=== PATIENT | female | born 1970 | race Caucasian/White ===

== ENCOUNTER 2021-04-09 12:25 | Emergency (ER) | payer BC ==
[2021-04-09 12:34] VITALS: TEMP 98
[2021-04-09] MEDS ORDERED: MORPHINE SULFATE 4 MG/ML SYRINGE IV STA (12:40)
--- NOTE | 2021-04-09 12:50 | ED ---
General Adult HPI - General Chief complaint: Recheck/Abnormal Lab/Rx Stated complaint: L kneck and arm pain Time Seen by Provider: 04/09/21 12:34 Source: patient, RN notes reviewed, old records reviewed Mode of arrival: wheelchair Limitations: no limitations - History of Present Illness Initial comments: 50-year-old female presenting for left neck pain pain began this morning. No injury or trauma. History is obtained both from the patient and her who is at bedside. She has a previous history of traumatic brain injury and has some speech difficulties but is able to answer questions. She denies chest pain or dyspnea. No fever. No abdominal pain. No vomiting. Pain is localized to the left neck and upper shoulder worse with movement. There was concern that this could be related to chest pain equivalent and this is the reason they have presents to the emergency department. She did take Motrin with some relief at home. - Related Data Allergies Allergy/AdvReac Type Severity Reaction Status Date / Time No Known Allergies Allergy Verified 04/09/21 12:28 Review of Systems ROS Statement: Those systems with pertinent positive or pertinent negative responses have been documented in the HPI. ROS Other: All systems not noted in ROS Statement are negative. Past Medical History Past Medical History: COPD, Diabetes Mellitus, Hyperlipidemia, Seizure Disorder Additional Past Medical History / Comment(s): TBI History of Any Multi-Drug Resistant Organisms: None Reported Past Surgical History: No Surgical Hx Reported Past Psychological History: Bipolar, Depression Smoking Status: Current every day smoker Past Alcohol Use History: None Reported Past Drug Use History: None Reported General Exam Limitations: no limitations General appearance: alert, in no apparent distress Head exam: Present: atraumatic, normocephalic Eye exam: Present: normal appearance, PERRL ENT exam: Present: normal exam Neck exam: Present: normal inspection, tenderness (Valerio has paraspinal tenderness left cervical region into the trapezius worse with rotation of the shoulder. No gross deformity of the shoulder. No midline tenderness.) Respiratory exam: Present: normal lung sounds bilaterally. Absent: respiratory distress, wheezes Cardiovascular Exam: Present: regular rate, normal rhythm GI/Abdominal exam: Present: soft. Absent: distended, tenderness, guarding Extremities exam: Present: normal inspection, full ROM, tenderness (Left shoulder, pain with range of motion in the trapezius.), normal capillary refill Neurological exam: Present: alert, oriented X3, CN II-XII intact. Absent: motor sensory deficit Psychiatric exam: Present: normal affect, normal mood Skin exam: Present: warm, dry, intact. Absent: cyanosis, diaphoretic Course Vital Signs 04/09/21 04/09/21 12:29 13:53 Temperature 98.0 F Pulse Rate 93 80 Respiratory 16 18 Rate Blood Pressure 115/76 129/83 O2 Sat by Pulse 100 98 Oximetry EKG Findings - EKG Comments: EKG Findings:: Normal sinus rhythm, rate of 95, PA interval 160, QRS duration 86, QTC 452, no ST segment elevation. Medical Decision Making - Medical Decision Making 50-year-old female with left-sided neck and shoulder pain. Pain is muscular in nature. No associated trauma. There was concern for cardiac cause of this pain. Pulse exam is within normal limits. She has no central chest pain. EKG is sinus rhythm without ST segment elevation. Chest x-rays negative for acute cardio pulmonary disease. She has a normal CBC, CMP does show some hypo magnesemia and elevated blood glucose. Otherwise unremarkable. Troponin is negative. Symptoms have been present throughout the day today. Patient reassured and feeling better. She will continue taking Motrin at home for symptom control. - Lab Data Result diagrams: 04/09/21 13:02 04/09/21 13:02 Lab Results 04/09/21 04/09/21 04/09/21 Range/Units 13:02 13:02 13:02 WBC 6.6 (3.8-10.6) k/uL RBC 4.22 (3.80-5.40) m/uL Hgb 13.7 (11.4-16.0) gm/dL Hct 40.2 (34.0-46.0) % MCV 95.3 (80.0-100.0) fL MCH 32.4 (25.0-35.0) pg MCHC 34.0 (31.0-37.0) g/dL RDW 12.1 (11.5-15.5) % Plt Count 195 (150-450) k/uL MPV 7.0 Neutrophils % 64 % Lymphocytes % 26 % Monocytes % 5 % Eosinophils % 3 % Basophils % 1 % Neutrophils # 4.2 (1.3-7.7) k/uL Lymphocytes # 1.7 (1.0-4.8) k/uL Monocytes # 0.3 (0-1.0) k/uL Eosinophils # 0.2 (0-0.7) k/uL Basophils # 0.0 (0-0.2) k/uL PT 10.8 (9.0-12.0) sec INR 1.0 (<1.2) APTT 22.5 (22.0-30.0) sec Sodium 138 (137-145) mmol/L Potassium 4.3 (3.5-5.1) mmol/L Chloride 105 (98-107) mmol/L Carbon Dioxide 25 (22-30) mmol/L Anion Gap 8 mmol/L BUN 9 (7-17) mg/dL Creatinine 0.48 L (0.52-1.04) mg/dL Est GFR (CKD-EPI)AfAm >90 (>60 ml/min/1.73 sqM) Est GFR (CKD-EPI)NonAf >90 (>60 ml/min/1.73 sqM) Glucose 235 H (74-99) mg/dL Calcium 9.4 (8.4-10.2) mg/dL Magnesium 1.3 L (1.6-2.3) mg/dL Total Bilirubin <0.1 L (0.2-1.3) mg/dL AST 25 (14-36) U/L ALT 22 (4-34) U/L Alkaline Phosphatase 138 H (38-126) U/L Troponin I (0.000-0.034) ng/mL Total Protein 6.3 (6.3-8.2) g/dL Albumin 4.0 (3.5-5.0) g/dL 04/09/21 Range/Units 13:02 WBC (3.8-10.6) k/uL RBC (3.80-5.40) m/uL Hgb (11.4-16.0) gm/dL Hct (34.0-46.0) % MCV (80.0-100.0) fL MCH (25.0-35.0) pg MCHC (31.0-37.0) g/dL RDW (11.5-15.5) % Plt Count (150-450) k/uL MPV Neutrophils % % Lymphocytes % % Monocytes % % Eosinophils % % Basophils % % Neutrophils # (1.3-7.7) k/uL Lymphocytes # (1.0-4.8) k/uL Monocytes # (0-1.0) k/uL Eosinophils # (0-0.7) k/uL Basophils # (0-0.2) k/uL PT (9.0-12.0) sec INR (<1.2) APTT (22.0-30.0) sec Sodium (137-145) mmol/L Potassium (3.5-5.1) mmol/L Chloride (98-107) mmol/L Carbon Dioxide (22-30) mmol/L Anion Gap mmol/L BUN (7-17) mg/dL Creatinine (0.52-1.04) mg/dL Est GFR (CKD-EPI)AfAm (>60 ml/min/1.73 sqM) Est GFR (CKD-EPI)NonAf (>60 ml/min/1.73 sqM) Glucose (74-99) mg/dL Calcium (8.4-10.2) mg/dL Magnesium (1.6-2.3) mg/dL Total Bilirubin (0.2-1.3) mg/dL AST (14-36) U/L ALT (4-34) U/L Alkaline Phosphatase (38-126) U/L Troponin I <0.012 (0.000-0.034) ng/mL Total Protein (6.3-8.2) g/dL Albumin (3.5-5.0) g/dL Disposition Clinical Impression: Trapezius muscle spasm Disposition: HOME SELF-CARE Condition: Good Instructions (If sedation given, give patient instructions): Cervical Strain (ED) Additional Instructions: Please follow up with her primary care physician. Is patient prescribed a controlled substance at d/c from ED?: No Referrals: Nonstaff,Physician [Primary Care Provider] - 1-2 days Time of Disposition: 14:03
[2021-04-09 13:14] LABS: Basophils % (A) 1 %; Eosinophils # (A) 0.2 k/uL (0-0.7); Eosinophils % (A) 3 %; HCT 40.2 % (34.0-46.0); HGB 13.7 gm/dL (11.4-16.0); Lymphocytes # (A) 1.7 k/uL (1.0-4.8); Lymphocytes % (A) 26 %; MCH 32.4 pg (25.0-35.0); MCV 95.3 fL (80.0-100.0); Monocytes # (A) 0.3 k/uL (0-1.0); Monocytes % (A) 5 %; Neutrophils # (A) 4.2 k/uL (1.3-7.7); Neutrophils % (A) 64 %; Platelet Count 195 k/uL (150-450); RBC 4.22 m/uL (3.80-5.40); RDW 12.1 % (11.5-15.5); WBC 6.6 k/uL (3.8-10.6)
[2021-04-09 13:24] LABS: ALT 22 U/L (4-34); AST 25 U/L (14-36); African American GFR (CKD) >90 (>60 ml/min/1.73 sqM); Alkaline Phosphatase 138 U/L (38-126); Anion Gap 8 mmol/L; Blood Urea Nitrogen 9 mg/dL (7-17); Calcium 9.4 mg/dL (8.4-10.2); Carbon Dioxide 25 mmol/L (22-30); Chloride 105 mmol/L (98-107); Glucose 235 mg/dL (74-99); Magnesium 1.3 mg/dL (1.6-2.3); Non-African American GFR(CKD) >90 (>60 ml/min/1.73 sqM); Potassium 4.3 mmol/L (3.5-5.1); Sodium 138 mmol/L (137-145); Total Bilirubin <0.1 mg/dL (0.2-1.3); Total Protein 6.3 g/dL (6.3-8.2)
--- NOTE | 2021-04-09 13:27 | XR ---
EXAMINATION TYPE: XR chest 2V DATE OF EXAM: 04/09/2021 COMPARISON: NONE HISTORY: Chest pain TECHNIQUE: Frontal and lateral views of the chest are obtained. FINDINGS: There is no focal air space opacity, pleural effusion, or pneumothorax seen. The cardiac silhouette size is within normal limits. The osseous structures are intact. IMPRESSION: No acute cardiopulmonary process.
[2021-04-09] MEDS ORDERED: MAGNESIUM SULFATE-D5W PMX 1 GM in DEXTROSE/WATER 1 100ML.BAG IVPB ONE (13:30)
[2021-04-09 13:35] LABS: Partial Thromboplastin Time 22.5 sec (22.0-30.0); Prothrombin Time 10.8 sec (9.0-12.0)
[2021-04-09 13:54] VITALS: PULSE 80; RESP 18
[2021-04-09 15:05] VITALS: BP 121/89
== END 2021-04-09 15:08 | disposition home or self-care (01) ==
LOC: EC 12:25
DX: M62.830 Muscle spasm of back (principal); E11.9 Type 2 diabetes mellitus without complications; E78.5 Hyperlipidemia, unspecified; G40.909 Epilepsy, unspecified, not intractable, without status epilepticus; J44.9 Chronic obstructive pulmonary disease, unspecified; F31.9 Bipolar disorder, unspecified; F17.200 Nicotine dependence, unspecified, uncomplicated; Z87.820 Personal history of traumatic brain injury
CPT/HCPCS: 36415; 93005; 80053; 83735; 84484; 85025; 85610; 85730; 71046; 99284; 96365; 96375; J2270; J3475

== ENCOUNTER 2021-11-30 10:29 | Emergency (ER) | payer BC ==
[2021-11-30] MEDS ORDERED: KETOROLAC 15 MG/ML 1 ML VIAL IM STA (11:19)
--- NOTE | 2021-11-30 11:40 | ED ---
Fall HPI - General Chief Complaint: Fall Stated Complaint: Fall Time Seen by Provider: 11/30/21 11:11 Source: patient Mode of arrival: ambulatory - History of Present Illness Initial Comments: Patient is a 51-year-old female who presents to the emergency department chief complaining of left knee pain due to fall. Patient slipped on snow yesterday and fell forward onto her left knee. No head trauma. No loss of consciousness. No blood thinner use. Patient currently reports left knee and left thigh pain anteriorly. Patient states that she has no limitation with knee movement. She denies numbness and tingling distal to the left thigh/knee She denies fever, chills, shortness of breath, chest pain, abdominal pain, nausea, vomiting, and dysuria. - Related Data Allergies Allergy/AdvReac Type Severity Reaction Status Date / Time divalproex sodium Allergy Unknown Verified 11/30/21 10:56 [From Depakote] lithium Allergy Unknown Verified 11/30/21 10:56 Review of Systems ROS Statement: Those systems with pertinent positive or pertinent negative responses have been documented in the HPI. ROS Other: All systems not noted in ROS Statement are negative. Past Medical History Past Medical History: COPD, Diabetes Mellitus, Hyperlipidemia, Seizure Disorder Additional Past Medical History / Comment(s): TBI History of Any Multi-Drug Resistant Organisms: None Reported Past Surgical History: Orthopedic Surgery Additional Past Surgical History / Comment(s): knee surgery left Past Psychological History: Bipolar, Depression Smoking Status: Current every day smoker Past Alcohol Use History: None Reported Past Drug Use History: None Reported General Exam Limitations: no limitations General appearance: alert, in no apparent distress Head exam: Present: atraumatic, normocephalic, normal inspection Eye exam: Present: normal appearance, PERRL, EOMI. Absent: scleral icterus, conjunctival injection, periorbital swelling Neck exam: Present: normal inspection, full ROM. Absent: tenderness Respiratory exam: Present: normal lung sounds bilaterally. Absent: respiratory distress, wheezes, rales, rhonchi, stridor Cardiovascular Exam: Present: regular rate, normal rhythm, normal heart sounds. Absent: systolic murmur, diastolic murmur, rubs, gallop, clicks GI/Abdominal exam: Present: soft. Absent: distended, tenderness, guarding, rebound, rigid Left Hip exam: Present: normal inspection, full ROM. Absent: tenderness, swelling, deformity, erythema Upper Leg exam: Present: normal inspection, full ROM. Absent: tenderness, swelling Knee exam: Present: normal inspection, full ROM, tenderness (anteriorly), swelling (suprapatellar ). Absent: ecchymosis, dislocation, erythema Lower Leg exam: Present: normal inspection, full ROM. Absent: tenderness, swelling, deformity Course Vital Signs 11/30/21 11/30/21 10:53 12:06 Temperature 98.4 F Pulse Rate 107 H 91 Respiratory 16 18 Rate Blood Pressure 124/76 113/83 O2 Sat by Pulse 99 97 Oximetry Medical Decision Making - Medical Decision Making Patient is a 51-year-old female who presents with left knee pain due to fall yesterday. Thorough history and examination were performed. Left femur x-ray reveals no acute fracture with arthropathy that can be correlated for femoral acetabular impingement. Left knee x-ray reveals no acute fracture or dislocation with a large suprapatellar bursal fluid collection. Patient given Toradol for pain. On reevaluation patient is resting in bed. Case discussed with patient. She will be discharged with orthopedic technician referral for further evaluation and management of her knee pain. Patient verbalizes understanding and is agreeable to plan. Return parameters discussed. Dr. Dick is my attending. Disposition Clinical Impression: Left knee pain Disposition: HOME SELF-CARE Condition: Good Instructions (If sedation given, give patient instructions): Fall Prevention for Older Adults (ED) Additional Instructions: Use crutches as directed. Keep knee immobilizer on during all physical activity. You may take the knee immobilizer off when resting the left knee. Ice the left knee for 20 minutes 4 times a day. Take Tylenol or Motrin as needed for pain. Follow-up with orthopedic technician at earliest available appointment. Return to the emergency department if he experienced new, concerning, or worsening symptoms. Is patient prescribed a controlled substance at d/c from ED?: No Referrals: Nonstaff,Physician [REFERRING] - 1-2 days Olga Freire DO [Doctor of Osteopathic Medicine] - 1-2 days Time of Disposition: 12:55
[2021-11-30 12:10] VITALS: RESP 18
--- NOTE | 2021-11-30 12:31 | XR ---
EXAMINATION TYPE: XR femur LT DATE OF EXAM: 11/30/2021 CLINICAL HISTORY: Pain TECHNIQUE: Two views of the left femur are obtained. COMPARISON: None FINDINGS: There is no acute fracture or dislocation seen in the left femur. Concentric narrowing of the hip joint with hypertrophic change of the acetabulum. IMPRESSION: 1. Arthropathy correlate for femoral acetabular impingement. 2. No acute fractures.
--- NOTE | 2021-11-30 12:32 | XR ---
EXAMINATION TYPE: XR knee complete LT DATE OF EXAM: 11/30/2021 COMPARISON: NONE HISTORY: Pain TECHNIQUE: Three views are submitted. FINDINGS: Narrowing medial compartment knee joint and patellofemoral joint with large suprapatellar bursal flui d collection. Chronic fractures involving the tibia fibula soft tissue calcifications.. Osseous stru ctures are intact. No acute fracture seen. IMPRESSION: 1. No acute fracture or dislocation. However, there is a large suprapatellar bursal fluid collection correlate with MRI as clinically warranted. 2. Chronic fractures of the tibia and fibula.
[2021-11-30 13:57] VITALS: BP 121/93; PULSE 96; TEMP 97.9
== END 2021-11-30 13:58 | disposition home or self-care (01) ==
LOC: EC 10:29
DX: M25.562 Pain in left knee (principal); J44.9 Chronic obstructive pulmonary disease, unspecified; E11.9 Type 2 diabetes mellitus without complications; E78.5 Hyperlipidemia, unspecified; F31.9 Bipolar disorder, unspecified; F17.200 Nicotine dependence, unspecified, uncomplicated
CPT/HCPCS: 99283; 96372; 73552; 73562; L1830; J1885

== ENCOUNTER 2023-11-08 09:59 | Emergency (ER) | payer BC ==
[2023-11-08 10:27] VITALS: TEMP 97.3
--- NOTE | 2023-11-08 11:02 | ED ---
General Adult HPI - General Chief complaint: Altered Mental Status Stated complaint: Unresponsive Time Seen by Provider: 11/08/23 10:14 Source: EMS Mode of arrival: EMS Limitations: altered mental status - History of Present Illness Initial comments: Dictation was produced using [employer] dictation software. please excuse any grammatical, word or spelling errors. Chief Complaint: 53-year-old female past medical history of traumatic brain injury, seizure presents to the ER after syncopal episode History of Present Illness: Patient is a 53-year-old female with past medical history of TBI and seizures presents to the emergency department after syncopal episode. Patient was brought in from home by EMS. Patient had a syncopal event after having a cigarette outside. Family member was with her when the event happened. There is no reported tonic-clonic activity. Family member was concerned that patient was having cardiac event started performing CPR. They noticed that she was breathing and decided to stop doing CPR. 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 Family are at the bedside states that patient appears to be a little slow., Slower more than usual The ROS documented in this emergency department record has been reviewed and confirmed by me. Those systems with pertinent positive or negative responses have been documented in the HPI. All other systems are other negative and/or noncontributory. - Related Data Home Medications Medication Instructions Recorded Confirmed Cholecalciferol [Vitamin D3 (25 50 mcg PO DAILY 11/08/23 11/08/23 Mcg = 1000 Iu)] Nateglinide [Starlix] 60 mg PO TID 11/08/23 11/08/23 OXcarbazepine [Trileptal] 300 mg PO BID 11/08/23 11/08/23 Simvastatin [Zocor] 40 mg PO HS 11/08/23 11/08/23 Trihexyphenidyl [Artane] 2 mg PO BID 11/08/23 11/08/23 cloZAPine [Clozaril] 600 mg PO DAILY 11/08/23 11/08/23 metFORMIN HCL [Glucophage] 1,000 mg PO BID 11/08/23 11/08/23 sitaGLIPtin [Januvia] 100 mg PO DAILY 11/08/23 11/08/23 Allergies Allergy/AdvReac Type Severity Reaction Status Date / Time divalproex sodium Allergy Unknown Verified 11/08/23 12:18 [From Depakote] lithium Allergy Unknown Verified 11/08/23 12:18 Review of Systems ROS Statement: Those systems with pertinent positive or pertinent negative responses have been documented in the HPI. ROS Other: All systems not noted in ROS Statement are negative. Past Medical History Past Medical History: COPD, Diabetes Mellitus, Hyperlipidemia, Seizure Disorder Additional Past Medical History / Comment(s): TBI History of Any Multi-Drug Resistant Organisms: None Reported Past Surgical History: Orthopedic Surgery Additional Past Surgical History / Comment(s): knee surgery left Past Psychological History: Bipolar, Depression Smoking Status: Current every day smoker Past Alcohol Use History: None Reported Past Drug Use History: None Reported General Exam - General Exam Comments Initial Comments: PHYSICAL EXAM: General Impression: Alert and oriented x3, not in acute distress HEENT: Normocephalic atraumatic, extra-ocular movements intact, pupils equal and reactive to light bilaterally, mucous membranes moist. Cardiovascular: Heart regular rate and rhythm Chest: Able to complete full sentences, no retractions, no tachypnea Abdomen: abdomen soft, non-tender, non-distended, no organomegaly Musculoskeletal: Pulses present and equal in all extremities, no peripheral ed raphael Motor: no focal deficits noted Neurological: CN II-XII grossly intact, no focal motor or sensory deficits noted Skin: Intact with no visualized rashes Psych: Normal affect and mood Limitations: altered mental status Course Vital Signs 11/08/23 11/08/23 11/08/23 10:12 11:00 11:30 Temperature 97.3 F L Pulse Rate 117 H 112 H 111 H Respiratory 14 24 18 Rate Blood Pressure 146/88 106/87 116/99 O2 Sat by Pulse 96 97 Oximetry 11/08/23 12:30 Temperature Pulse Rate 105 H Respiratory 26 H Rate Blood Pressure 131/93 O2 Sat by Pulse 97 Oximetry EKG Findings - EKG Comments: EKG Findings:: My EKG interpretation: Ventricular rate 119, sinus tachycardia,. 140, cures 91, QTc 399. No OR prolongation, no QTC prolongation, no ST or T-wave changes noted. Overall, this EKG is unremarkable Medical Decision Making - Medical Decision Making Was pt. sent in by a medical professional or institution (, PA, INTERFACE ANALYST, urgent care, hospital, or residential...) When possible be specific @ -No Did you speak to anyone other than the patient for history (EMS, parent, family, police, friend...)? What history was obtained from this source @ -EMS and at the bedside Did you review nursing and triage notes (agree or disagree)? Why? @ -I reviewed and agree with nursing and triage notes Were old charts reviewed (outside hosp., previous admission, EMS record, old EKG, old radiological studies, urgent care reports/EKG's, residential records)? Report findings @ -No old charts were reviewed Differential Diagnosis (chest pain, altered mental status, abdominal pain women, abdominal pain men, vaginal bleeding, musculoskeletal, weakness, fever, dyspnea, syncope, headache, dizziness, GI bleed, back pain, seizure, CVA, palpatations, mental health)? @ -Differential Syncope: Valvular disease, hypertrophic cardiomyopathy, pulmonary embolism, tamponade, tachycardia, bradycardia, CT, hypovolemia, hemorrhage, dissection, anemia, intracranial hemorrhage, seizure, hypoglycemia, carbon monoxide poisoning, this is not meant to be an all-inclusive list. EKG interpreted by me (3pts min.). @ -See above X-rays interpreted by me (1pt min.). @ -Chest x-ray is unremarkable CT interpreted by me (1pt min.). @ -CT of the head and C-spine shows no acute processes. No old CT comparison of the head however at the bedside states states that patient has ch ronic skull fracture from traumatic brain injury suffered years ago U/S interpreted by me (1pt. min.). @ -None done What testing was considered but not performed or refused? (CT, X-rays, U/S, labs)? Why? @ -None What meds were considered but not given or refused? Why? @ -None Did you discuss the management of the patient with other professionals (professionals i.e. Dr., PA, INTERFACE ANALYST, lab, RT, psych nurse, social services director, blanket washer, teacher, guest services officer, top case assembler)? Give summary @ -No Was smoking cessation discussed for >3mins.? @ -No Was critical care preformed (if so, how long)? @ -No Were there social determinants of health that impacted care today? How? (Homelessness, low income, unemployed, alcoholism, drug addiction, transportation, low edu. Level, literacy, decrease access to med. care, residential, rehab)? @ -No Was there de-escalation of care discussed even if they declined (Discuss DNR or withdrawal of care, Hospice)? DNR status @ -No What co-morbidities impacted this encounter? (DM, HTN, Smoking, COPD, CAD, Cancer, CVA, ARF, Chemo, Hep., AIDS, mental health diagnosis, sleep apnea, morbid obesity)? @ -None Was patient admitted / discharged? Hospital course, mention meds given and route, prescriptions, significant lab abnormalities, going to OR and other pertinent info. @ -53-year-old female presents to the emergency department after syncopal episode. Patient has no cardiac history. Vital signs stable at the bedside. Laboratory evaluation unremarkable. Imaging studies are at baseline. Patient slightly hypomagnesemic given oral magnesium. Patient observed in the emergency department for 4 hours reevaluated bedside at 2:10 PM feels great wants to be discharged. states that patient appears to be at baseline. Patient does not have any high risk features. She has no history of cardiomyopathy. Patient discharged Undiagnosed new problem with uncertain prognosis? @ -No Drug Therapy requiring intensive monitoring for toxicity (Heparin, Nitro, Insuli n, Cardizem)? @ -No Were any procedures done? @ -No Diagnosis/symptom? Acute, or Chronic, or Acute on Chronic? Uncomplicated (without systemic symptoms) or Complicated (systemic symptoms)? @ -Syncope, no high risk features Side effects of treatment? @ -No Exacerbation, Progression, or Severe Exacerbation? @ -No Poses a threat to life or bodily function? How? (Chest pain, USA, CT, pneumonia, PE, COPD, DKA, ARF, appy, cholecystitis, CVA, Diverticulitis, Homicidal, Suicidal, threat to staff... and all critical care pts) @ -No - Lab Data Result diagrams: 11/08/23 11:02 11/08/23 11: Lab Results 11/08/23 11/08/23 11/08/23 Range/Units 11:02 11: 11: WBC 10.2 (3.8-10.6) k/uL RBC 4.64 (3.80-5.40) m/uL Hgb 13.7 (11.4-16.0) gm/dL Hct 42.5 (34.0-46.0) % MCV 91.6 (80.0-100.0) fL MCH 29.5 (25.0-35.0) pg MCHC 32.2 (31.0-37.0) g/dL RDW 13.0 (11.5-15.5) % Plt Count 230 (150-450) k/uL MPV 8.0 Neutrophils % 83 % Lymphocytes % 11 % Monocytes % 4 % Eosinophils % 0 % Basophils % 0 % Neutrophils # 8.5 H (1.3-7.7) k/uL Lymphocytes # 1.1 (1.0-4.8) k/uL Monocytes # 0.4 (0-1.0) k/uL Eosinophils # 0.0 (0-0.7) k/uL Basophils # 0.0 (0-0.2) k/uL Sodium 132 L (137-145) mmol/L Potassium 4.6 (3.5-5.1) mmol/L Chloride 102 (98-107) mmol/L Carbon Dioxide 22 (22-30) mmol/L Anion Gap 8 mmol/L BUN 9 (7-17) mg/dL Creatinine 0.45 L (0.52-1.04) mg/dL Est GFR (CKD-EPI)AfAm >90 (>60 ml/min/1.73 sqM) Est GFR (CKD-EPI)NonAf >90 (>60 ml/min/1.73 sqM) Glucose 177 H (74-99) mg/dL Plasma Lactic Acid Adolfo (0.7-2.0) mmol/L Calcium 8.9 (8.4-10.2) mg/dL Magnesium 1.3 L (1.6-2.3) mg/dL Total Bilirubin 0.3 (0.2-1.3) mg/dL AST 19 (14-36) U/L ALT 17 (4-34) U/L Alkaline Phosphatase 126 (38-126) U/L Troponin I <0.012 (0.000-0.034) ng/mL Total Protein 6.4 (6.3-8.2) g/dL Albumin 3.8 (3.5-5.0) g/dL 11/08/23 Range/Units 11:26 WBC (3.8-10.6) k/uL RBC (3.80-5.40) m/uL Hgb (11.4-16.0) gm/dL Hct (34.0-46.0) % MCV (80.0-100.0) fL MCH (25.0-35.0) pg MCHC (31.0-37.0) g/dL RDW (11.5-15.5) % Plt Count (150-450) k/uL MPV Neutrophils % % Lymphocytes % % Monocytes % % Eosinophils % % Basophils % % Neutrophils # (1.3-7.7) k/uL Lymphocytes # (1.0-4.8) k/uL Monocytes # (0-1.0) k/uL Eosinophils # (0-0.7) k/uL Basophils # (0-0.2) k/uL Sodium (137-145) mmol/L Potassium (3.5-5.1) mmol/L Chloride (98-107) mmol/L Carbon Dioxide (22-30) mmol/L Anion Gap mmol/L BUN (7-17) mg/dL Creatinine (0.52-1.04) mg/dL Est GFR (CKD-EPI)AfAm (>60 ml/min/1.73 sqM) Est GFR (CKD-EPI)NonAf (>60 ml/min/1.73 sqM) Glucose (74-99) mg/dL Plasma Lactic Acid Adolfo 1.0 (0.7-2.0) mmol/L Calcium (8.4-10.2) mg/dL Magnesium (1.6-2.3) mg/dL Total Bilirubin (0.2-1.3) mg/dL AST (14-36) U/L ALT (4-34) U/L Alkaline Phosphatase (38-126) U/L Troponin I (0.000-0.034) ng/mL Total Protein (6.3-8.2) g/dL Albumin (3.5-5.0) g/dL Disposition Clinical Impression: Syncope Disposition: HOME SELF-CARE Condition: Good Instructions (If sedation given, give patient instructions): Syncope (ED) Is patient prescribed a controlled substance at d/c from ED?: No Referrals: Nonstaff,Physician [Primary Care Provider] - 1-2 days Time of Disposition: 14:10
[2023-11-08 11:17] LABS: Basophils % (A) 0 %; Eosinophils % (A) 0 %; HCT 42.5 % (34.0-46.0); HGB 13.7 gm/dL (11.4-16.0); Lymphocytes # (A) 1.1 k/uL (1.0-4.8); Lymphocytes % (A) 11 %; MCH 29.5 pg (25.0-35.0); MCHC 32.2 g/dL (31.0-37.0); MCV 91.6 fL (80.0-100.0); Monocytes # (A) 0.4 k/uL (0-1.0); Monocytes % (A) 4 %; Neutrophils # (A) 8.5 k/uL (1.3-7.7); Neutrophils % (A) 83 %; Platelet Count 230 k/uL (150-450); RBC 4.64 m/uL (3.80-5.40); WBC 10.2 k/uL (3.8-10.6)
[2023-11-08 12:03] LABS: ALT 17 U/L (4-34); AST 19 U/L (14-36); African American GFR (CKD) >90 (>60 ml/min/1.73 sqM); Albumin 3.8 g/dL (3.5-5.0); Alkaline Phosphatase 126 U/L (38-126); Anion Gap 8 mmol/L; Blood Urea Nitrogen 9 mg/dL (7-17); Calcium 8.9 mg/dL (8.4-10.2); Carbon Dioxide 22 mmol/L (22-30); Chloride 102 mmol/L (98-107); Glucose 177 mg/dL (74-99); Magnesium 1.3 mg/dL (1.6-2.3); Non-African American GFR(CKD) >90 (>60 ml/min/1.73 sqM); Potassium 4.6 mmol/L (3.5-5.1); Sodium 132 mmol/L (137-145); Total Bilirubin 0.3 mg/dL (0.2-1.3); Total Protein 6.4 g/dL (6.3-8.2)
--- NOTE | 2023-11-08 12:12 | CT ---
EXAMINATION TYPE: CT brain subha [place] con DATE OF EXAM: 11/08/2023 COMPARISON: None HISTORY: Syncope CT DLP: 1335.23 mGycm Automated exposure control for dose reduction was used. TECHNIQUE: CT scan of the head and cervical spine are performed without contrast. Findings: Head CT: There are fractures with minimal overlying soft tissue swelling in the inferior left frontal lobe wit h involvement through portion of the left frontal sinuses. The age is indeterminant. There is a large area of encephalomalacia involving the left frontal lobe the brain. The ventricles, basal cisterns and sulci over the convexities are moderately enlarged consistent with moderate atrophy. There is mild decreased density in the periventricular white matter consistent wit h chronic ischemic white matter demyelination. There is no acute bleed or mass effect. Posterior fossa is grossly normal. Intraorbital contents appear normal. Mastoid air cells are well aerated. CT cervical spine: Craniovertebral junction relationships and prevertebral soft tissues are normal. The cervical vertebral segments are normal in height and alignment and there is no fracture subluxati on. There is moderate degenerative disease at the C6-7 level where there is moderate disc space narrowing and marked spondylosis. Facet arthritis in the mid and lower cervical spine. There is no bony encroachment of the cervical canal. The paraspinal soft tissues unremarkable. IMPRESSION: 1. Nondisplaced fractures of the inferior left frontal bone in left frontal sinus indeterminate age. There is minimal overlying soft tissue swelling. 2. Large area of encephalomalacia involving the left frontal lobe. 3. No acute bleed or mass effect. 4.. CT cervical spine: No acute trauma. Moderate degeneration of the facet joints and moderate degene rative disease at the C6-7 level.
--- NOTE | 2023-11-08 12:54 | XR ---
EXAMINATION TYPE: XR chest 1V portable DATE OF EXAM: 11/08/2023 12:46 PM CLINICAL INDICATION:Female, 53 years old with history of syncope; COMPARISON: Chest radiographs from 04/09/2021 TECHNIQUE: XR chest 1V portable Frontal view of the chest. FINDINGS: Lungs/Pleura: There is no evidence of pleural effusion, focal consolidation, or pneumothorax. Pulmonary vascularity: Unremarkable. Heart/mediastinum: Cardiomediastinal silhouette is unremarkable. Musculoskeletal: No acute osseous pathology. Other findings: None IMPRESSION: No acute cardiopulmonary disease/process.
[2023-11-08] MEDS ORDERED: MAGNESIUM OXIDE 400 MG TAB PO STA (13:06)
[2023-11-08 14:52] VITALS: BP 108/96; PULSE 107; RESP 18
== END 2023-11-08 14:42 | disposition home or self-care (01) ==
LOC: EC 09:59
DX: R55 Syncope and collapse (principal); J44.9 Chronic obstructive pulmonary disease, unspecified; E11.9 Type 2 diabetes mellitus without complications; E78.5 Hyperlipidemia, unspecified; F31.9 Bipolar disorder, unspecified; F17.200 Nicotine dependence, unspecified, uncomplicated; Z79.84 Long term (current) use of oral hypoglycemic drugs; Z79.899 Other long term (current) drug therapy; Z88.8 Allergy status to other drugs, medicaments and biological substances
CPT/HCPCS: 36415; 70450; 71045; 72125; 80053; 83605; 83735; 84484; 85025; 93005; 99285